=== PATIENT | male | born 1965 | race Caucasian/White ===

== ENCOUNTER → 2023-12-07 13:54 | Outpatient (REF) | payer OTHER, SELFPAY | LOC: RAD 13:54 | PROVIDERS: ATTENDING PHYSICIAN Physician Assistant; FAMILY PHYSICIAN Family Medicine | DX: M54.42 Lumbago with sciatica, left side (principal); G89.29 Other chronic pain | CPT/HCPCS: 72110 ==

== ENCOUNTER → 2024-01-10 17:47 | Outpatient (REF) | payer OTHER, SELFPAY | LOC: PAVMRI 17:47 | PROVIDERS: ATTENDING PHYSICIAN Family Medicine | DX: G89.29 Other chronic pain (principal); M54.2 Cervicalgia; R20.0 Anesthesia of skin | CPT/HCPCS: 72148 ==

== ENCOUNTER → 2024-05-24 11:55 | Outpatient (REF) | payer OTHER, SELFPAY | LOC: RCS 11:55 | PROVIDERS: ATTENDING PHYSICIAN Nurse Practitioner Family | DX: I10 Essential (primary) hypertension (principal) | CPT/HCPCS: 93005 ==

== ENCOUNTER → 2024-06-09 09:43 | Outpatient (REF) | payer OTHER, SELFPAY | LOC: RCS 09:43 | PROVIDERS: ATTENDING PHYSICIAN Nurse Practitioner Family; FAMILY PHYSICIAN Family Medicine | DX: I10 Essential (primary) hypertension (principal) | CPT/HCPCS: 93017 ==